=== PATIENT | female | born 1950 | race Asian ===

== ENCOUNTER 2019-10-13 07:23 | Emergency (ER) | payer OTHER ==
[~2019-10-13] VITALS: Ht 121.9 cm; Wt 49.1 kg
[2019-10-13] MEDS ORDERED: SIMV-259 PO (07:30)
[2019-10-13] MEDS ORDERED: ASPI-728 PO (07:30)
[2019-10-13] MEDS ORDERED: LOSA25TA71 PO (07:30)
[2019-10-13] MEDS ORDERED: CARB-101 PO (07:30)
[2019-10-13 08:41] VITALS: BP 162/61
== END 2019-10-13 09:22 | disposition home or self-care (01) ==
LOC: EMS 07:24
DX: J06.9 Acute upper respiratory infection, unspecified (principal); I10 Essential (primary) hypertension; E78.00 Pure hypercholesterolemia, unspecified; Z79.899 Other long term (current) drug therapy